=== PATIENT | male | born 1970 | race Caucasian/White ===

== ENCOUNTER 2019-03-28 20:07 | Emergency (ER) | payer MEDICARE, BC ==
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
[2019-03-28 20:55] LABS: ABSOLUTE BASOPHILS # (AUTO) 0.1 10^3/uL (0.0-0.2); ABSOLUTE EOSINOPHILS # (AUTO) 0.1 10^3/uL (0.0-0.6); ABSOLUTE LYMPHOCYTES (AUTO) 1.9 10^3/uL (0.5-4.7); ABSOLUTE MONOCYTES (AUTO) 0.6 10^3/uL (0.1-1.4); ABSOLUTE NEUT (AUTO) 7.9 10^3/uL (1.7-8.2); BASOPHILS % (AUTO) 0.6 % (0-2); EOSINOPHILS % (AUTO) 0.8 % (0-6); HEMATOCRIT 39.5 % (37.9-51.0); HEMOGLOBIN 14.1 g/dL (13.5-17.0); LYMPHOCYTES % (AUTO) 17.8 % (13-45); MEAN CORPUSCULAR HEMOGLOBIN 31.3 pg (27.0-33.4); MEAN CORPUSCULAR HGB CONC 35.6 g/dL (32.0-36.0); MEAN CORPUSCULAR VOLUME 88 fl (80-97); MONOCYTES % (AUTO) 5.6 % (3-13); PLATELET COUNT 262 10^3/uL (150-450); RED CELL DISTRIBUTION WIDTH 12.9 % (11.5-14.0); SEGMENTED NEUTROPHILS % (AUTO) 75.2 % (42-78); TOTAL CELLS COUNTED % (AUTO) 100 %; WHITE BLOOD COUNT 10.4 10^3/uL (4.0-10.5)
[2019-03-28 21:11] LABS: ALBUMIN 5.5 g/dL (3.5-5.0); ALKALINE PHOSPHATASE 69 U/L (38-126); ANION GAP 16 (5-19); ASPARTATE AMINO TRANSFERASE 25 U/L (17-59); BILIRUBIN,DIRECT 0.2 mg/dL (0.0-0.4); BILIRUBIN,TOTAL 0.6 mg/dL (0.2-1.3); BLOOD UREA NITROGEN 17 mg/dL (7-20); CALCIUM 10.5 mg/dL (8.4-10.2); CARBON DIOXIDE 25 mmol/L (22-30); CHLORIDE 102 mmol/L (98-107); GLUCOSE 157 mg/dL (75-110); POTASSIUM 4.5 mmol/L (3.6-5.0); TOTAL PROTEIN 8.8 g/dL (6.3-8.2)
[2019-03-28 22:28] LABS: APPEARANCE,URINE CLEAR; BILIRUBIN,URINE NEGATIVE (NEGATIVE); COLOR,URINE YELLOW; GLUCOSE, URINE NEGATIVE (NEGATIVE); KETONES,URINE NEGATIVE (NEGATIVE); PROTEIN,URINE 30 mg/dL (NEGATIVE); URINE SPECIFIC GRAVITY 1.015
[2019-03-28 23:23] VITALS: BP 178/110
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
[2019-03-29] MEDS ORDERED: BENAZEPRIL HCL 20 MG TABLET PO ONE (00:05)
[2019-03-29] MEDS ORDERED: AMLODIPINE BESYLATE 5 MG TABLET PO ONE (00:05)
[2019-03-29] MEDS ORDERED: BENAZEPRIL HCL 20 MG TABLET ONE (00:15)
--- NOTE | 2019-03-29 07:53 | RADIOLOGY REPORT (SQ) ---
EXAM DESCRIPTION: XR RIBS UNILATERAL WITH CHEST COMPLETED DATE/TME: March 28, 2019 CLINICAL HISTORY: 48 years, Male, RIGHT RIB PAIN COMPARISON: None. NUMBER OF VIEWS: Three TECHNIQUE: Frontal and oblique radiographs of the chest were acquired. LIMITATIONS: None. FINDINGS: Cardiac and mediastinal contours are normal in appearance. Lungs are clear. No pleural effusion or pneumothorax. No definite acute rib fractures are clearly identified. IMPRESSION: No acute disease; no rib fracture identified. copyright 2010 [email or web address]- All Rights Reserved
--- NOTE | 2019-03-29 23:57 | EKG REPORT ---
SEVERITY:- NORMAL ECG - SINUS RHYTHM : Confirmed by: Kat Vincent 29-Mar-2019 23:56:24
== END 2019-03-29 00:36 | disposition home or self-care (01) ==
LOC: ER 20:07
DX: R07.81 Pleurodynia (principal); I10 Essential (primary) hypertension; R51 Headache; R53.1 Weakness; X58.XXXA Exposure to other specified factors, initial encounter; Z79.899 Other long term (current) drug therapy; E11.9 Type 2 diabetes mellitus without complications
CPT/HCPCS: 36415; 85025; 80053; 81001; 84484; 71101; 93005; 93010; A9270 ×2; 99284

== ENCOUNTER 2019-11-16 10:21 | Inpatient (IN) | payer BC, MEDICARE ==
[2019-11-16] MEDS ORDERED: NORMAL SALINE 1000 ML 2,000 ML IV ONE (11:03)
[2019-11-16 11:17] LABS: ABSOLUTE BASOPHILS # (AUTO) 0.1 10^3/uL (0.0-0.2); ABSOLUTE EOSINOPHILS # (AUTO) 0.1 10^3/uL (0.0-0.6); ABSOLUTE LYMPHOCYTES (AUTO) 2.5 10^3/uL (0.5-4.7); ABSOLUTE NEUT (AUTO) 12.5 10^3/uL (1.7-8.2); BASOPHILS % (AUTO) 0.4 % (0-2); EOSINOPHILS % (AUTO) 0.5 % (0-6); HEMATOCRIT 38.7 % (37.9-51.0); HEMOGLOBIN 13.7 g/dL (13.5-17.0); LYMPHOCYTES % (AUTO) 15.2 % (13-45); MEAN CORPUSCULAR HEMOGLOBIN 31.5 pg (27.0-33.4); MEAN CORPUSCULAR HGB CONC 35.2 g/dL (32.0-36.0); MEAN CORPUSCULAR VOLUME 90 fl (80-97); MONOCYTES % (AUTO) 6.2 % (3-13); PLATELET COUNT 298 10^3/uL (150-450); RED BLOOD COUNT 4.33 10^6/uL (4.35-5.55); RED CELL DISTRIBUTION WIDTH 13.2 % (11.5-14.0); SEGMENTED NEUTROPHILS % (AUTO) 77.7 % (42-78); TOTAL CELLS COUNTED % (AUTO) 100 %; WHITE BLOOD COUNT 16.1 10^3/uL (4.0-10.5)
--- NOTE | 2019-11-16 11:17 | ER Document Report ---
Entered by MARS VALIENTE SCRIBE 11/16/19 1053 Acting as scribe for:FRANK KRUSE DO ED Dizziness/Weakness - General Chief Complaint: Weakness Stated Complaint: WEAKNESS Mode of Arrival: Ambulatory Information source: Patient Notes: This 49-year-old male patient with history of hypertension, hyperlipidemia, CVA x2 with residual right-sided weakness, and chronic back pain that presents today with complaints of falling off of the toilet this morning. Patient reports that he laid on the ground for a while before he "realized what had happened". Patient reports something similar has happened in the past when he had his strokes. Patient mentions he has felt generally weak for x2 weeks and just not felt well but is unable to elaborate further. TRAVEL OUTSIDE OF THE [place] IN LAST 30 DAYS: No - Related Data Allergies/Adverse Reactions: No Known Allergies Allergy (Verified 11/16/19 10:45) Home Medications: lisinopril Past Medical History - General Information source: Patient - Social History Smoking Status: Never Smoker Cigarette use (# per day): No Frequency of alcohol use: None Drug Abuse: Prescription drugs, Other Lives with: Family Family History: Reviewed & Not Pertinent Patient has homicidal ideation: No - Past Medical History Cardiac Medical History: Reports: Hx Hypertension Neurological Medical History: Reports: Hx Cerebrovascular Accident - With resi dual right-sided weakness Endocrine Medical History: Reports: Hx Diabetes Mellitus Type 2 Surgical Hx: Negative - Immunizations Immunizations up to date: Yes Hx Diphtheria, Pertussis, Tetanus Vaccination: Yes Review of Systems - Review of Systems Constitutional: See HPI, Weakness. denies: Fever EENT: No symptoms reported Cardiovascular: No symptoms reported Respiratory: No symptoms reported Gastrointestinal: See HPI, Constipation Genitourinary: No symptoms reported Male Genitourinary: No symptoms reported Musculoskeletal: No symptoms reported Skin: No symptoms reported Hematologic/Lymphatic: No symptoms reported Neurological/Psychological: No symptoms reported -: Yes All other systems reviewed and negative Physical Exam - Vital signs Vitals: Resp Pulse Ox 14 97 11/16/19 10:30 11/16/19 10:30 - Notes Notes: Physical Exam: General: Alert, appears well. HEENT: Normocephalic. Left frontal abrasion. Pupils are 2-3 mm bilaterally, sluggish but reactive. Extraocular movements intact. Oropharynx clear. Neck: Supple. Non-tender. Respiratory: No respiratory distress. Clear and equal breath sounds bilaterally. Cardiovascular: Regular rate and rhythm. Abdominal: Obese. Non-tender. No distension. Normal Bowel Sounds. Back: No gross abnormalities. Extremities: Moves all four extremities. Upper extremities: Normal inspection. Normal ROM. Lower extremities: Normal inspection. No edema. Normal ROM. Neurological: Normal cognition. AAOx4. Normal speech. Cranial nerves II through XII grossly intact bilaterally. Psychological: Normal affect. Normal Mood. Skin: Warm. Dry. Normal color. Course - Vital Signs Vital signs: Temp Pulse Resp BP Pulse Ox 97.9 F 72 16 125/61 100 11/16/19 17:58 11/16/19 17:58 11/16/19 17:58 11/16/19 17:58 11/16/19 17:58 - Laboratory Result Diagrams: 11/16/19 10:30 11/16/19 14:54 Laboratory results interpreted by me: 11/16/19 11/16/19 11/16/19 10:30 10:30 10:30 WBC 16.1 H RBC 4.33 L Absolute Neuts (auto) 12.5 H Sodium Chloride Carbon Dioxide 21 L BUN 51 H Creatinine 4.99 H Est GFR ( Amer) 15 L Est GFR (MDRD) Non-Af 12 L Glucose 171 H Calcium Albumin 5.1 H Urine Protein Urine Urobilinogen Acetaminophen < 10 L 11/16/19 11/16/19 13:00 14:54 WBC RBC Absolute Neuts (auto) Sodium 135.5 L Chloride 109 H Carbon Dioxide 18 L BUN 46 H Creatinine 3.38 H Est GFR ( Amer) 23 L Est GFR (MDRD) Non-Af 19 L Glucose 152 H Calcium 7.8 L Albumin Urine Protein 100 H Urine Urobilinogen 2.0 H Acetaminophen - Diagnostic Test Radiology reviewed: Reports reviewed - EKG Interpretation by Me EKG shows normal: Sinus rhythm - NSR [address] elevation or depression my interpretation Critical Care Note - Critical Care Note Total time excluding time spent on procedures (mins): 30 Discharge - Discharge Clinical Impression: Acute renal failure Qualifiers: Acute renal failure type: unspecified Qualified Code(s): N17.9 - Acute kidney failure, unspecified Condition: Stable Disposition: ADMITTED INPATIENT I personally performed the services described in the documentation, reviewed and edited the documentation which was dictated to the scribe in my presence, and it accurately records my words and actions.
[2019-11-16 11:28] LABS: ALBUMIN 5.1 g/dL (3.5-5.0); ALKALINE PHOSPHATASE 63 U/L (38-126); ANION GAP 18 (5-19); ASPARTATE AMINO TRANSFERASE 22 U/L (17-59); BILIRUBIN,DIRECT 0.1 mg/dL (0.0-0.4); BILIRUBIN,TOTAL 0.5 mg/dL (0.2-1.3); BLOOD UREA NITROGEN 51 mg/dL (7-20); CALCIUM 10.1 mg/dL (8.4-10.2); CARBON DIOXIDE 21 mmol/L (22-30); CHLORIDE 99 mmol/L (98-107); CREATINE KINASE 146 U/L (55-170); GLUCOSE 171 mg/dL (75-110); POTASSIUM 4.2 mmol/L (3.6-5.0); TOTAL PROTEIN 8.2 g/dL (6.3-8.2)
--- NOTE | 2019-11-16 11:47 | RADIOLOGY REPORT (SQ) ---
EXAM DESCRIPTION: CT HEAD WITHOUT IMAGES COMPLETED DATE/TIME: 11/16/2019 10:24 am REASON FOR STUDY: weak/ cva history COMPARISON: None. TECHNIQUE: Axial images acquired through the brain without intravenous contrast. Images reviewed wi th bone, brain and subdural windows. Additional sagittal and coronal reconstructions were generated. Images stored on PACS. All CT scanners at this facility use dose modulation, iterative reconstruction, and/or weight based d osing when appropriate to reduce radiation dose to as low as reasonably achievable (ALARA). [facility]: Dose Right [facility]: CareDose [facility]: Dose Right [facility]: Teradose 4D [facility]: Smart [employer] RADIATION DOSE: CT Rad equipment meets quality standard of care and radiation dose reduction techniq ues were employed. CTDIvol: 53.2 mGy. DLP: 1017 mGy-cm. mGy. LIMITATIONS: None. FINDINGS: VENTRICLES: Normal size and contour. CEREBRUM: No masses. No hemorrhage. No midline shift. No evidence for acute infarction. Normal gra y-white matter differentiation. Chronic appearing lacunar infarct right vasquez radiata. CEREBELLUM: No masses. No hemorrhage. No alteration of density. No evidence for acute infarction. EXTRAAXIAL SPACES: No fluid collections. No masses. ORBITS AND GLOBE: No intra- or extraconal masses. Normal contour of globe without masses. CALVARIUM: No fracture. PARANASAL SINUSES: No fluid or mucosal thickening. SOFT TISSUES: No mass or hematoma. OTHER: No other significant finding. IMPRESSION: 1. No acute intracranial hemorrhage, mass, or evidence of acute territorial infarct. 2. Chronic appearing lacunar infarct right vasquez radiata. EVIDENCE OF ACUTE STROKE: NO. COMMENT: Quality ID # [id number]: Final reports with documentation of one or more dose reduction techniques (e.g., Automated exposure control, adjustment of the mA and/or kV according to patient size, use of iterative reconstruction technique) TECHNICAL DOCUMENTATION: JOB ID: [id number] 2010 [employer]- All Rights Reserved Reading location - IP/workstation name: [email or web address]
[2019-11-16] MEDS ORDERED: NORMAL SALINE 1000 ML 1,000 ML IV ONE ×3 (12:23→14:41)
[2019-11-16 12:58] LABS: INTERNATIONAL RATION (INR) 1.16; PROTHROMBIN TIME 14.9 SEC (11.4-15.4)
[2019-11-16 13:34] LABS: APPEARANCE,URINE SLIGHTLY-CLOUDY; BILIRUBIN,URINE NEGATIVE (NEGATIVE); COLOR,URINE YELLOW; GLUCOSE, URINE NEGATIVE (NEGATIVE); KETONES,URINE NEGATIVE (NEGATIVE); LEUKOCYTE ESTERASE,URINE NEGATIVE (NEGATIVE); NITRITE,URINE NEGATIVE (NEGATIVE); PROTEIN,URINE 100 mg/dL (NEGATIVE)
[2019-11-16 13:53] LABS: URINE AMPHETAMINES SCREEN NEGATIVE; URINE BARBITURATES SCREEN NEGATIVE; URINE BENZODIAZEPINES SCREEN NEGATIVE; URINE COCAINE SCREEN NEGATIVE; URINE MARIJUANA (THC) SCREEN NEGATIVE; URINE PHENCYCLIDINE SCREEN NEGATIVE
[2019-11-16 13:54] LABS: URINE METHADONE SCREEN UNCONFIRMED POSITIVE
[2019-11-16] MEDS ORDERED: DEXTROSE 40% GEL 15 GM TUBE PO PRN ×2 (15:21)
[2019-11-16] MEDS ORDERED: GLUCAGON,HUMAN RECOMB 1 MG INJ IM PRN (15:21)
[2019-11-16] MEDS ORDERED: DEXTROSE 50%-WATER 25 GM/50 ML DISP.SYRIN IV PRN ×2 (15:21)
[2019-11-16 15:27] LABS: ANION GAP 9 (5-19); BLOOD UREA NITROGEN 46 mg/dL (7-20); CALCIUM 7.8 mg/dL (8.4-10.2); CARBON DIOXIDE 18 mmol/L (22-30); CHLORIDE 109 mmol/L (98-107); GLUCOSE 152 mg/dL (75-110); POTASSIUM 4.4 mmol/L (3.6-5.0)
--- NOTE | 2019-11-16 15:44 | PDOC H&P ---
History of Present Illness Admission Date/PCP: DEIDRA MARTINEZ MD History of Present Illness: LESLIE DE LA O is a 49 year old male with a history of hypertension, scn-[id number] diabetes mellitus, and chronic back pain on methadone who comes in after an episode today where his legs gave out on him while he was at work. 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 He said he normally drinks 3 or 4 bottles of water a day. He said his urine has been very dark for a couple of weeks. He said he had an episode where he nearly passed out while sitting on the toilet. He said the methadone makes him constipated. He said he has been trying to wean off the methadone and he said at one point he was taking 80 mg a day and he is now down to 30. He said he has been trying to supplement for acute pain with Tylenol and ibuprofen and he said he takes ibuprofen 3 or 4 times a day, usually 4 tablets at a time of [id number]-[id number] ibuprofen. He said today his legs were very weak and gave out on him when he was trying to get into his truck. He said his son found him and he said it felt like he realized he had slipped down into the floor board of the truck but it did not occur to him to try to get up. At this point he was brought to the hospital. His blood pressure was found to be very low, and he usually says he is hypertensive. He has been taking his medications for blood pressure and diabetes. He said he does not know the names of everything but he says that he takes pill medications for diabetes. He was given a liter of fluid by EMS, and he got 2 more liters of fluid from the ER and his systolic was still in the 80s. He has put out a little bit of urine in the ER. His creatinine was substantially elevated. He previously had normal kidney function. Past Medical History Cardiac Medical History: Reports: Hypertension Endocrine Medical History: Reports: Diabetes Mellitus Type 2 Social History Lives with: Family Smoking Status: Never Smoker Family History Family History: Reviewed & Not Pertinent, CVA, DM, Hyperlipidemia, Hypertension Parental Family History Reviewed: Yes Children Family History Reviewed: Yes Sibling(s) Family History Reviewed.: Yes Medication/Allergy Home Medications: Amlodipine Besylate [Norvasc 5 mg Tablet] 5 mg PO DAILY #30 tablet 03/29/19 Benazepril HCl [Lotensin] 40 mg PO DAILY #30 tablet 03/29/19 Allergies/Adverse Reactions: No Known Allergies Allergy (Verified 11/16/19 10:45) Review of Systems All systems: reviewed and no additional remarkable complaints except as stated - All systems were reviewed but were negative except as noted in the HPI Physical Exam Vital Signs: Temp Pulse Resp BP Pulse Ox 97.7 F 77 20 82/47 L 98 11/16/19 10:35 11/16/19 13:25 11/16/19 15:02 11/16/19 14:55 11/16/19 15:02 Intake & Output 11/15/19 11/16/19 11/17/19 06:59 06:59 06:59 Intake Total 3273 Balance 3273 Weight 94.7 kg General appearance: PRESENT: no acute distress, cooperative, disheveled, obese Head exam: PRESENT: atraumatic, normocephalic Eye exam: PRESENT: EOMI, PERRLA. ABSENT: conjunctival injection, nystagmus, scleral icterus Ear exam: PRESENT: normal external ear exam Mouth exam: PRESENT: dry mucosa, neck supple Throat exam: ABSENT: post pharyngeal erythema Neck exam: PRESENT: full ROM. ABSENT: carotid bruit, JVD, lymphadenopathy, meningismus, tenderness, thyromegaly Respiratory exam: PRESENT: clear to auscultation boni, symmetrical, unlabored. ABSENT: accessory muscle use, chest wall tenderness, crackles, prolonged expiratory phas, rhonchi, tachypnea, wheezes Cardiovascular exam: PRESENT: RRR, +S1, +S2 Pulses: PRESENT: normal carotid pulses Vascular exam: PRESENT: normal capillary refill GI/Abdominal exam: PRESENT: normal bowel sounds, soft. ABSENT: distended, guarding, rebound, tenderness Extremities exam: ABSENT: clubbing, pedal edema Musculoskeletal exam: PRESENT: normal inspection. ABSENT: deformity Neurological exam: PRESENT: alert, awake, oriented to person, oriented to place, oriented to situation, CN II-XII grossly intact. ABSENT: motor sensory deficit Psychiatric exam: PRESENT: appropriate affect, normal mood Skin exam: PRESENT: dry, warm Results Laboratory Results: 11/16/19 10:30 11/16/19 11/16/19 11/16/19 10:30 10:30 10:30 WBC 16.1 H RBC 4.33 L Hgb 13.7 Hct 38.7 MCV 90 MCH 31.5 MCHC 35.2 RDW 13.2 Plt Count 298 Seg Neutrophils % 77.7 Sodium 138.0 Potassium 4.2 Chloride 99 Carbon Dioxide 21 L Anion Gap 18 BUN 51 H Creatinine 4.99 H Est GFR ( Amer) 15 L Glucose 171 H Lactic Acid Calcium 10.1 Magnesium 2.0 Total Bilirubin 0.5 AST 22 Alkaline Phosphatase 63 Total Protein 8.2 Albumin 5.1 H TSH 2.24 Urine Color Urine Appearance Urine pH Ur Specific [place] Urine Protein Urine Glucose (UA) Urine Ketones Urine Blood Urine Nitrite Ur Leukocyte Esterase Urine WBC (Auto) Urine RBC (Auto) 11/16/19 11/16/19 10:30 13:00 WBC RBC Hgb Hct MCV MCH MCHC RDW Plt Count Seg Neutrophils % Sodium Potassium Chloride Carbon Dioxide Anion Gap BUN Creatinine Est GFR ( Amer) Glucose Lactic Acid 1.6 Calcium Magnesium Total Bilirubin AST Alkaline Phosphatase Total Protein Albumin TSH Urine Color YELLOW Urine Appearance SLIGHTLY-CLOUDY Urine pH 5.0 Ur Specific [place] 1.020 Urine Protein 100 H Urine Glucose (UA) NEGATIVE Urine Ketones NEGATIVE Urine Blood NEGATIVE Urine Nitrite NEGATIVE Ur Leukocyte Esterase NEGATIVE Urine WBC (Auto) 6 Urine RBC (Auto) 2 11/16/19 11/16/19 11/16/19 10:30 10:30 10:30 Creatine Kinase 146 Cancelled Troponin I 0.016 Impressions: Head CT 11/16/19 11:05 IMPRESSION: 1. No acute intracranial hemorrhage, mass, or evidence of acute territorial infarct. 2. Chronic appearing lacunar infarct right vasquez radiata. EVIDENCE OF ACUTE STROKE: NO. Assessment and Plan - Diagnosis (1) Acute kidney injury Is this a current diagnosis for this admission?: Yes Plan: Likely as a result of multiple factors. He works outside, and it has been extremely hot and humid the last couple of weeks, so he probably was not d rinking enough fluid to keep up with his ongoing losses. The dehydration, coupled with his suspected metformin and an GILA inhibitor, plus all of the ibuprofen he was taking likely contributed to his renal failure. We are holding his blood pressure medications now and his metformin. We will cover him with a sliding scale. We will give him some IV fluids and monitor his renal function and urine output. (2) Hypotension due to hypovolemia Is this a current diagnosis for this admission?: Yes Plan: He is gotten about 3 L of fluid thus far. We will continue him on some IV fluids. We will monitor his urine output. His last blood pressure when I got done with him in the ER showed a systolic of 106. (3) Dehydration Is this a current diagnosis for this admission?: Yes Plan: IV fluids as previously noted (4) Chronic back pain Qualifiers: Back pain location: low back pain Back pain laterality: bilateral Sciatica presence: without sciatica Qualified Code(s): M54.5 - Low back pain; G89.29 - Other chronic pain Is this a current diagnosis for this admission?: Yes Plan: We will continue his methadone (5) Essential hypertension Is this a current diagnosis for this admission?: Yes Plan: Blood pressure medication on hold for now (6) Non-insulin dependent diabetes mellitus Is this a current diagnosis for this admission?: Yes Plan: Diabetes medicines on hold, will cover him with a sliding scale - Time Time Spent with patient: 35 or more minutes - Inpatient Certification Based on my medical assessment, after consideration of the patient's comorbidities, presenting symptoms, or acuity I expect that the services needed warrant INPATIENT care.: Yes I certify that my determination is in accordance with my understanding of Medicare's requirements for reasonable and necessary INPATIENT services [42 CFR 412.3e].: Yes Medical Necessity: Significant Comorbidiites Make Outpatient Treatment Too Risky, Need Close Monitoring Due to Risk of Patient Decompensation, Need For IV Fluids, Need For Continuous Telemetry Monitoring, Risk of Complication if Not Cared For in Hospital
[2019-11-16] MEDS: NORMAL SALINE 1000 ML 1,000 ML IV PRN ×2 (16:01→22:58)
[2019-11-16] MEDS: INSULIN LISPRO 100 UNIT/ML 3 ML VIAL SUBCUT SCH ×2 (16:04→21:26)
[2019-11-16] MEDS: HEPARIN SOD (PORCINE) 5,000 UNIT/ML 1 ML VIAL SUBCUT SCH (21:26)
[2019-11-17] MEDS: HEPARIN SOD (PORCINE) 5,000 UNIT/ML 1 ML VIAL SUBCUT SCH (05:13)
[2019-11-17] MEDS: NORMAL SALINE 1000 ML 1,000 ML IV PRN (05:19)
[2019-11-17 07:14] LABS: HEMATOCRIT 31.5 % (37.9-51.0); MEAN CORPUSCULAR HEMOGLOBIN 31.9 pg (27.0-33.4); MEAN CORPUSCULAR HGB CONC 35.5 g/dL (32.0-36.0); MEAN CORPUSCULAR VOLUME 90 fl (80-97); PLATELET COUNT 192 10^3/uL (150-450); RED CELL DISTRIBUTION WIDTH 13.1 % (11.5-14.0)
[2019-11-17 07:15] LABS: HEMOGLOBIN 11.2 g/dL (13.5-17.0)
[2019-11-17] MEDS: INSULIN LISPRO 100 UNIT/ML 3 ML VIAL SUBCUT SCH ×2 (07:24→11:35)
[2019-11-17 07:33] LABS: ANION GAP 7 (5-19); BLOOD UREA NITROGEN 29 mg/dL (7-20); CALCIUM 8.1 mg/dL (8.4-10.2); CARBON DIOXIDE 19 mmol/L (22-30); CHLORIDE 112 mmol/L (98-107); GLUCOSE 113 mg/dL (75-110); POTASSIUM 4.1 mmol/L (3.6-5.0)
[2019-11-17] MEDS ORDERED: METHADONE HCL 10 MG TABLET PO SCH ×2 (08:00→10:00)
[2019-11-17] MEDS ORDERED: OXYMETAZOLINE HCL 0.05% NASAL SPRAY 15 ML BOTTLE NAREB PRN (08:24)
[2019-11-17 12:04] VITALS: BP 113/67
--- NOTE | 2019-11-17 14:44 | PDOC DISCHARGE SUMMARY ---
Impression - Admit/DC Date/PCP Admission Date/Primary Care Provider: 11/16/19 15:52 DEIDRA MARTINEZ MD Discharge Date: 11/17/19 - Discharge Diagnosis (1) Acute kidney injury Is this a current diagnosis for this admission?: Yes (2) Hypotension due to hypovolemia Is this a current diagnosis for this admission?: Yes (3) Dehydration Is this a current diagnosis for this admission?: Yes (4) Chronic back pain Is this a current diagnosis for this admission?: Yes (5) Essential hypertension Is this a current diagnosis for this admission?: Yes (6) Non-insulin dependent diabetes mellitus Is this a current diagnosis for this admission?: Yes - Additional Information Resuscitation Status: Full Code Discharge Diet: Cardiac, Diabetic, Other (Comments) Discharge Activity: Slowly Increase Activity Referrals: DEIDRA MARTINEZ MD [Primary Care Provider] - 11/23/19 9:00 am Home Medications: Amlodipine Besylate [Norvasc 5 mg Tablet] 5 mg PO DAILY #30 tablet 03/29/19 Benazepril HCl [Lotensin] 40 mg PO DAILY #30 tablet 03/29/19 Acetaminophen [Acetaminophen Extra Strength] 500 mg PO .IN EXCESS PRN 11/16/19 Aspirin [Aspirin 325 mg Tablet] 325 mg PO .IN EXCESS PRN 11/16/19 Atorvastatin Calcium [Lipitor 10 mg Tablet] 10 mg PO QHS 11/16/19 Metformin HCl [Metformin HCl ER] 500 mg PO DAILY 11/16/19 Methadone HCl [Methadone Oral Soln 1Mg/ml 30 ml Bottle] 30 mg PO DAILY 11/16/19 History of Present Illiness History of Present Illness: LESLIE DE LA O is a 49 year old male with a history of hypertension, rry-uhxezwr-cvyocsyjy diabetes mellitus, and chronic back pain on methadone who comes in after an episode today where his legs gave out on him while he was at work. 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 He said he normally drinks 3 or 4 bottles of water a day. He said his urine has been very dark for a couple of weeks. He said he had an episode where he nearly passed out while sitting on the toilet. He said the methadone makes him constipated. He said he has been trying to wean off the methadone and he said at one point he was taking 80 mg a day and he is now down to 30. He said he has been trying to supplement for acut e pain with Tylenol and ibuprofen and he said he takes ibuprofen 3 or 4 times a day, usually 4 tablets at a time of arsh-ymy-fzivrqm ibuprofen. He said today his legs were very weak and gave out on him when he was trying to get into his truck. He said his son found him and he said it felt like he realized he had slipped down into the floor board of the truck but it did not occur to him to try to get up. At this point he was brought to the hospital. His blood pressure was found to be very low, and he usually says he is hypertensive. He has been taking his medications for blood pressure and diabetes. He said he does not know the names of everything but he says that he takes pill medications for diabetes. He was given a liter of fluid by EMS, and he got 2 more liters of fluid from the ER and his systolic was still in the 80s. He has put out a little bit of urine in the ER. His creatinine was substantially elevated. He previously had normal kidney function. Hospital Course Hospital Course: He responded to IV fluids a lot more rapidly than we anticipated. His creatinine was essentially normal this morning. He said he has had excellent urine output. He said he was feeling much better. His kidney function is good enough that he can resume his blood pressure medications and his diabetes medications. I told him that if he needs to take anything additional to his methadone for his back pain, he should avoid ibuprofen or Aleve or other NSAIDs for at least a couple of weeks to give his kidneys a chance to fully recover. I told him that he could take Tylenol, but he needs to restrict until to 4 g a day or less. He verbalizes understanding. I told him to take couple of days off work and he said that he is going to see his primary care doctor early next week and will find out if he can return to work at that time. I told him to make sure that when he is working that he needs to drink enough water so that his urine is a light yellow color. He verbalizes understanding. His labs and examination were reassuring and he was discharged in stable condition. Physical Exam Vital Signs: Temp Pulse Resp BP Pulse Ox 98.1 F 69 16 113/67 100 11/17/19 12:58 11/17/19 12:58 11/17/19 12:58 11/17/19 12:58 11/17/19 12:58 Intake & Output 11/16/19 11/17/19 11/18/19 06:59 06:59 06:59 Intake Total 6213 1480 Balance 6213 1480 Weight 97.6 kg General appearance: PRESENT: no acute distress, cooperative, disheveled, obese Respiratory exam: PRESENT: clear to auscultation boni, symmetrical, unlabored. ABSENT: accessory muscle use, chest wall tenderness, crackles, prolonged ex piratory phas, rhonchi, tachypnea, wheezes Cardiovascular exam: PRESENT: RRR, +S1, +S2 Pulses: PRESENT: normal carotid pulses Vascular exam: PRESENT: normal capillary refill GI/Abdominal exam: PRESENT: normal bowel sounds, soft. ABSENT: distended, guarding, rebound, tenderness Extremities exam: ABSENT: clubbing, pedal edema Musculoskeletal exam: PRESENT: normal inspection. ABSENT: deformity Neurological exam: PRESENT: alert, awake, oriented to person, oriented to place, oriented to situation Psychiatric exam: PRESENT: appropriate affect, normal mood Skin exam: PRESENT: dry, warm Results Laboratory Results: WBC 8.0 10^3/uL (4.0-10.5) 11/17/19 06:56 RBC 3.50 10^6/uL (4.35-5.55) L 11/17/19 06:56 Hgb 11.2 g/dL (13.5-17.0) L D 11/17/19 06:56 Hct 31.5 % (37.9-51.0) L 11/17/19 06:56 MCV 90 fl (80-97) 11/17/19 06:56 MCH 31.9 pg (27.0-33.4) 11/17/19 06:56 MCHC 35.5 g/dL (32.0-36.0) 11/17/19 06:56 RDW 13.1 % (11.5-14.0) 11/17/19 06:56 Plt Count 192 10^3/uL (150-450) 11/17/19 06:56 Lymph % (Auto) 15.2 % (13-45) 11/16/19 10:30 [place] % (Auto) 6.2 % (3-13) 11/16/19 10:30 Eos % (Auto) 0.5 % (0-6) 11/16/19 10:30 Baso % (Auto) 0.4 % (0-2) 11/16/19 10:30 Absolute Neuts (auto) 12.5 10^3/uL (1.7-8.2) H 11/16/19 10:30 Absolute Lymphs (auto) 2.5 10^3/uL (0.5-4.7) 11/16/19 10:30 Absolute Monos (auto) 1.0 10^3/uL (0.1-1.4) 11/16/19 10:30 Absolute Eos (auto) 0.1 10^3/uL (0.0-0.6) 11/16/19 10:30 Absolute Basos (auto) 0.1 10^3/uL (0.0-0.2) 11/16/19 10:30 Seg Neutrophils % 77.7 % (42-78) 11/16/19 10:30 PT 14.9 SEC (11.4-15.4) 11/16/19 10:30 INR 1.16 11/16/19 10:30 Sodium 138.4 mmol/L (137-145) 11/17/19 06:56 Potassium 4.1 mmol/L (3.6-5.0) 11/17/19 06:56 Chloride 112 mmol/L (98-107) H 11/17/19 06:56 Carbon Dioxide 19 mmol/L (22-30) L 11/17/19 06:56 Anion Gap 7 (5-19) 11/17/19 06:56 BUN 29 mg/dL (7-20) H 11/17/19 06:56 Creatinine 1.24 mg/dL (0.52-1.25) 11/17/19 06:56 Est GFR ( Amer) > 60 (>60) 11/17/19 06:56 Est GFR (MDRD) Non-Af > 60 (>60) 11/17/19 06:56 Glucose 113 mg/dL (75-110) H 11/17/19 06:56 POC Glucose 141 mg/dL (70-110) H 11/17/19 11:34 Lactic Acid 1.6 mmol/L (0.7-2.1) 11/16/19 10:30 Calcium 8.1 mg/dL (8.4-10.2) L 11/17/19 06:56 Magnesium 2.0 mg/dL (1.6-2.3) 11/16/19 10:30 Total Bilirubin 0.5 mg/dL (0.2-1.3) 11/16/19 10:30 Direct Bilirubin 0.1 mg/dL (0.0-0.4) 11/16/19 10:30 Neonat Total Bilirubin Not Reportable 11/16/19 10:30 Neonat Direct Bilirubin Not Reportable 11/16/19 10:30 Neonat Indirect Bili Not Reportable 11/16/19 10:30 AST 22 U/L (17-59) 11/16/19 10:30 ALT 15 U/L (<50) 11/16/19 10:30 Alkaline Phosphatase 63 U/L (38-126) 11/16/19 10:30 Creatine Kinase 146 U/L (55-170) 11/16/19 10:30 Creatine Kinase Cancelled 11/16/19 10:30 Troponin I 0.016 ng/mL 11/16/19 10:30 Total Protein 8.2 g/dL (6.3-8.2) 11/16/19 10:30 Albumin 5.1 g/dL (3.5-5.0) H 11/16/19 10:30 TSH 2.24 uIU/mL (0.47-4.68) 11/16/19 10:30 Urine Color YELLOW 11/16/19 13:00 Urine Appearance SLIGHTLY-CLOUDY 11/16/19 13:00 Urine pH 5.0 (5.0-9.0) 11/16/19 13:00 Ur Specific [place] 1.020 11/16/19 13:00 Urine Protein 100 mg/dL (NEGATIVE) H 11/16/19 13:00 Urine Glucose (UA) NEGATIVE mg/dL (NEGATIVE) 11/16/19 13:00 Urine Ketones NEGATIVE mg/dL (NEGATIVE) 11/16/19 13:00 Urine Blood NEGATIVE (NEGATIVE) 11/16/19 13:00 Urine Nitrite NEGATIVE (NEGATIVE) 11/16/19 13:00 Urine Bilirubin NEGATIVE (NEGATIVE) 11/16/19 13:00 Urine Urobilinogen 2.0 mg/dL (<2.0) H 11/16/19 13:00 Ur Leukocyte Esterase NEGATIVE (NEGATIVE) 11/16/19 13:00 Urine WBC (Auto) 6 /HPF 11/16/19 13:00 Urine RBC (Auto) 2 /HPF 11/16/19 13:00 U Hyaline Cast (Auto) 111 /LPF 11/16/19 13:00 Squamous Epi Cells Auto 2 /HPF 11/16/19 13:00 Urine Mucus (Auto) FEW /LPF 11/16/19 13:00 Urine Ascorbic Acid NEGATIVE (NEGATIVE) 11/16/19 13:00 Urine Opiates Screen NEGATIVE 11/16/19 13:00 Urine Methadone Screen UNCONFIRMED POSITIVE 11/16/19 13:00 Acetaminophen < 10 ug/mL (10-30) L 11/16/19 10:30 Ur Barbiturates Screen NEGATIVE 11/16/19 13:00 Ur Phencyclidine Scrn NEGATIVE 11/16/19 13:00 Ur Amphetamines Screen NEGATIVE 11/16/19 13:00 U Benzodiazepines Scrn NEGATIVE 11/16/19 13:00 Urine Cocaine Screen NEGATIVE 11/16/19 13:00 U Marijuana (THC) Screen NEGATIVE 11/16/19 13:00 11/16/19 10:30 Troponin I 0.016 Impressions: Head CT 11/16/19 11:05 IMPRESSION: 1. No acute intracranial hemorrhage, mass, or evidence of acute territorial infarct. 2. Chronic appearing lacunar infarct right vasquez radiata. EVIDENCE OF ACUTE STROKE: NO. Plan Time Spent: Greater than 30 Minutes Stroke Is this a Stroke Patient?: No Acute Heart Failure - Is this a Heart Failure Patient?: No
--- NOTE | 2019-11-17 19:21 | EKG REPORT ---
SEVERITY:- NORMAL ECG - SINUS RHYTHM : Confirmed by: Kat Vincent 17-Nov-2019 19:20:26
== END 2019-11-17 13:15 | disposition home or self-care (01) | DRG 684 ==
LOC: ER 10:21 → EH 15:52 → 4N 17:38
PROVIDERS: ADMIT Family Medicine; ATTEND Family Medicine
DX: N17.9 Acute kidney failure, unspecified (principal); E86.1 Hypovolemia; I95.89 Other hypotension; E86.0 Dehydration; G89.29 Other chronic pain; M54.5 Low back pain; Z79.891 Long term (current) use of opiate analgesic; E11.9 Type 2 diabetes mellitus without complications; I10 Essential (primary) hypertension; E78.5 Hyperlipidemia, unspecified; Z79.899 Other long term (current) drug therapy; Z82.3 Family history of stroke; Z83.3 Family history of diabetes mellitus; Z82.49 Family history of ischemic heart disease and other diseases of the circulatory system; Z83.438 Family history of other disorder of lipoprotein metabolism and other lipidemia
CPT/HCPCS: 36415; 70450; 80048; 80053; 80307; 81001; 82550; 82962; 83605; 83735; 84443; 84484; 85025; 85027; 85610; 87040; 93005; 93010; 96360; 96361; 99291; J3490; J7030